=== PATIENT | male | born 1985 | race Caucasian/White ===

== ENCOUNTER 2023-06-01 18:54 | Emergency (ER) | payer BC ==
[~2023-06-01] VITALS: Ht 170.2 cm; Wt 74.8 kg
[2023-06-01 18:55] VITALS: BP 138/74; TEMP 98; O2SAT 100
[2023-06-01] MEDS ORDERED: LORAZEPAM INJ 2 MG/ML VIAL IV ONE (19:00)
[2023-06-01] MEDS ORDERED: IV NS 0.9% 1,000 ML BAG IV ONE (19:00)
[2023-06-01] MEDS ORDERED: FOLIC ACID 1 MG TABLET PO ONE (19:00)
[2023-06-01] MEDS ORDERED: THIAMINE HCL 100 MG TABLET PO ONE (19:00)
[2023-06-01] MEDS ORDERED: LAMO100T2 PO (19:11)
[2023-06-01] MEDS ORDERED: CLON1TAB12 PO (19:11)
[2023-06-01] MEDS ORDERED: GABA600T12 PO (19:11)
[2023-06-01] MEDS ORDERED: BACL20TA PO (19:11)
[2023-06-01] MEDS ORDERED: FOLIC ACID 1 MG TABLET ONE (19:37)
[2023-06-01] MEDS ORDERED: THIAMINE HCL 100 MG TABLET ONE (19:37)
[2023-06-01] MEDS ORDERED: LORAZEPAM INJ 2 MG/ML VIAL ONE (19:38)
[2023-06-01 20:06] LABS: BASOPHILS % (AUTO) 0.5 % (0.0-2.0); EOSINOPHILS # (AUTO) 0.2 K/uL (0.0-0.7); EOSINOPHILS % (AUTO) 1.9 % (0.0-6.0); HEMATOCRIT 39 % (39-51); HEMOGLOBIN 13.1 g/dL (13.5-17.5); LYMPHOCYTES # (AUTO) 1.6 K/uL (0.8-4.8); MEAN CORPUSCULAR HEMOGLOBIN 29 PG (26.0-33.0); MEAN CORPUSCULAR HGB CONC 34 g/dl (31.0-36.0); MEAN CORPUSCULAR VOLUME 87 fL (80-96); MONOCYTES # (AUTO) 0.6 K/uL (0.1-1.30); MONOCYTES % (AUTO) 6.8 % (2.0-12.0); NEUTROPHILS # (AUTO) 6.6 K/uL (1.8-8.9); NEUTROPHILS % (AUTO) 72.8 % (43.0-81.0); PLATELET COUNT (AUTO) 232 K/uL (150-450); RED BLOOD CELL COUNT(AUTO) 4.52 MIL/uL (4.5-6.0); RED CELL DISTRIBUTION WIDTH 14.1 % (11.5-15.0); WHITE BLOOD COUNT (AUTO) 9.1 K/uL (4.3-11.0)
[2023-06-01 20:28] LABS: AMPHETAMINE, URINE NEGATIVE (NEGATIVE); CANNABINOID, URINE NEGATIVE (NEGATIVE); COCCAINE, URINE NEGATIVE (NEGATIVE); OPIATE, URINE NEGATIVE (NEGATIVE); PHENCYCLIDINE SCREEN,URINE NEGATIVE (NEGATIVE)
[2023-06-01 20:29] LABS: ALANINE AMINOTRANSFERASE 42 U/L (12-78); ALBUMIN 3.3 g/dL (3.4-5.0); ALCOHOL, BLOOD < 3 mg/dL (0-10); ALKALINE PHOSPHATASE 98 U/L (46-116); ASPARTATE AMINOTRANSFERASE 40 U/L (15-37); BILIRUBIN,DIRECT 0.2 mg/dL (0.0-0.2); BILIRUBIN,TOTAL 0.8 mg/dL (0.2-1.0); CALCIUM, SERUM 8.6 mg/dL (8.5-10.1); CARBON DIOXIDE 29 mmol/L (21-32); CHLORIDE 103 mmol/L (98-107); GLUCOSE 109 mg/dL (74-106); POTASSIUM 3.5 mmol/L (3.5-5.1); SODIUM SERUM 140 mmol/L (136-145); TOTAL PROTEIN, SERUM 6.8 g/dL (6.4-8.2); UREA NITROGEN, BLOOD 7 mg/dL (7-18)
[2023-06-01 20:34] LABS: BARBITURATE, URINE POSITIVE (NEGATIVE); BENZODIAZEPINE, URINE POSITIVE (NEGATIVE)
== END 2023-06-01 20:55 | disposition left against medical advice (07) ==
LOC: ER 18:58
DX: R56.9 Unspecified convulsions (principal); F10.239 Alcohol dependence with withdrawal, unspecified; F10.229 Alcohol dependence with intoxication, unspecified; Y90.0 Blood alcohol level of less than 20 mg/100 ml
CPT/HCPCS: 99285; 96374; 96361; 93005; 71045; 85025; 80048; 80076; 36415; 82962; 80320; 80307; J2060; J7030; G0480

== ENCOUNTER 2023-06-03 14:51 | Emergency (ER) | payer BC ==
[~2023-06-03] VITALS: Ht 172.7 cm; Wt 69.9 kg
[~2023-06-03 14:51] MED LIST: BACL20TA PO; CLON1TAB12 PO; GABA600T12 PO; LAMO100T2 PO
[2023-06-03] MEDS ORDERED: LORAZEPAM INJ 2 MG/ML VIAL ONE ×2 (15:19→17:56)
[2023-06-03] MEDS ORDERED: LORAZEPAM INJ 2 MG/ML VIAL IV ONE ×2 (15:30→18:00)
[2023-06-03 16:15] LABS: BASOPHILS # (AUTO) 0.1 K/uL (0.0-0.2); BASOPHILS % (AUTO) 0.6 % (0.0-2.0); EOSINOPHILS # (AUTO) 0.2 K/uL (0.0-0.7); EOSINOPHILS % (AUTO) 2.5 % (0.0-6.0); HEMATOCRIT 39 % (39-51); HEMOGLOBIN 12.9 g/dL (13.5-17.5); LYMPHOCYTES # (AUTO) 1.5 K/uL (0.8-4.8); LYMPHOCYTES % (AUTO) 17.1 % (20.0-44.0); MEAN CORPUSCULAR HEMOGLOBIN 29 PG (26.0-33.0); MEAN CORPUSCULAR HGB CONC 33 g/dl (31.0-36.0); MEAN CORPUSCULAR VOLUME 88 fL (80-96); MONOCYTES # (AUTO) 0.6 K/uL (0.1-1.30); MONOCYTES % (AUTO) 7.1 % (2.0-12.0); NEUTROPHILS # (AUTO) 6.2 K/uL (1.8-8.9); NEUTROPHILS % (AUTO) 72.7 % (43.0-81.0); PLATELET COUNT (AUTO) 261 K/uL (150-450); RED BLOOD CELL COUNT(AUTO) 4.42 MIL/uL (4.5-6.0); RED CELL DISTRIBUTION WIDTH 14.3 % (11.5-15.0); WHITE BLOOD COUNT (AUTO) 8.5 K/uL (4.3-11.0)
[2023-06-03 16:25] LABS: CALCIUM, SERUM 8.8 mg/dL (8.5-10.1); CARBON DIOXIDE 23 mmol/L (21-32); CHLORIDE 105 mmol/L (98-107); CREATININE 1.1 mg/dL (0.6-1.3); GLUCOSE 117 mg/dL (74-106); POTASSIUM 3.5 mmol/L (3.5-5.1); SODIUM SERUM 138 mmol/L (136-145); UREA NITROGEN, BLOOD 16 mg/dL (7-18)
[2023-06-03 16:31] LABS: ALANINE AMINOTRANSFERASE 46 U/L (12-78); ALBUMIN 3.1 g/dL (3.4-5.0); ALCOHOL, BLOOD < 3 mg/dL (0-10); ALKALINE PHOSPHATASE 85 U/L (46-116); ASPARTATE AMINOTRANSFERASE 39 U/L (15-37); BILIRUBIN,DIRECT 0.1 mg/dL (0.0-0.2); BILIRUBIN,TOTAL 0.3 mg/dL (0.2-1.0); TOTAL PROTEIN, SERUM 6.7 g/dL (6.4-8.2)
[2023-06-03 16:34] LABS: ACETAMINOPHEN <10 ug/ml (10-30); SALICYLATE < 2.3 mg/dL (2.8-20.0)
[2023-06-03] MEDS ORDERED: CHLO25CA22 PO (17:52)
[2023-06-03 18:12] VITALS: BP 122/71; TEMP 98; O2SAT 100
== END 2023-06-03 18:13 | disposition home or self-care (01) ==
LOC: ER 15:06
DX: R56.9 Unspecified convulsions (principal); Z79.899 Other long term (current) drug therapy; Z60.2 Problems related to living alone
CPT/HCPCS: 99291; 96374; 96376; 70450; 85025; 80048; 80076; 36415; 80143; 80320; J2060 ×2; G0480

== ENCOUNTER 2023-06-07 00:09 | Inpatient (IN) | payer BC ==
[~2023-06-07] VITALS: Ht 180.3 cm; Wt 86.2 kg
[~2023-06-07 00:09] MED LIST changes: +CHLO25CA22 PO
[2023-06-07] MEDS ORDERED: LEVETIRACETAM (500MG) 500 MG/5 ML VIAL IV ONE (00:29)
[2023-06-07] MEDS ORDERED: LORAZEPAM INJ 2 MG/ML VIAL ONE (00:32)
[2023-06-07] MEDS: LEVETIRACETAM (500MG) 1,000 MG in IV NS 0.9% 90 ML IV SCH ×2 (00:41→00:43)
[2023-06-07 00:42] LABS: BASOPHILS % (AUTO) 0.5 % (0.0-2.0); EOSINOPHILS # (AUTO) 0.2 K/uL (0.0-0.7); EOSINOPHILS % (AUTO) 2.4 % (0.0-6.0); HEMATOCRIT 41 % (39-51); HEMOGLOBIN 13.4 g/dL (13.5-17.5); LYMPHOCYTES # (AUTO) 2.1 K/uL (0.8-4.8); LYMPHOCYTES % (AUTO) 25.6 % (20.0-44.0); MEAN CORPUSCULAR HEMOGLOBIN 29 PG (26.0-33.0); MEAN CORPUSCULAR HGB CONC 33 g/dl (31.0-36.0); MEAN CORPUSCULAR VOLUME 89 fL (80-96); MONOCYTES # (AUTO) 1.3 K/uL (0.1-1.30); MONOCYTES % (AUTO) 16.3 % (2.0-12.0); NEUTROPHILS # (AUTO) 4.4 K/uL (1.8-8.9); NEUTROPHILS % (AUTO) 55.2 % (43.0-81.0); PLATELET COUNT (AUTO) 312 K/uL (150-450); RED BLOOD CELL COUNT(AUTO) 4.62 MIL/uL (4.5-6.0); RED CELL DISTRIBUTION WIDTH 15.2 % (11.5-15.0)
[2023-06-07 00:51] LABS: CALCIUM, SERUM 9.2 mg/dL (8.5-10.1); CARBON DIOXIDE 21 mmol/L (21-32); CHLORIDE 106 mmol/L (98-107); GLUCOSE 109 mg/dL (74-106); POTASSIUM 3.9 mmol/L (3.5-5.1); SODIUM SERUM 138 mmol/L (136-145); UREA NITROGEN, BLOOD 15 mg/dL (7-18)
[2023-06-07 00:54] LABS: PHENOBARBITAL 6 ug/ml (15-39)
[2023-06-07 00:56] LABS: ALANINE AMINOTRANSFERASE 71 U/L (12-78); ALBUMIN 3.4 g/dL (3.4-5.0); ALKALINE PHOSPHATASE 78 U/L (46-116); ASPARTATE AMINOTRANSFERASE 30 U/L (15-37); BILIRUBIN,DIRECT 0.1 mg/dL (0.0-0.2); BILIRUBIN,TOTAL 0.2 mg/dL (0.2-1.0); TOTAL PROTEIN, SERUM 7.2 g/dL (6.4-8.2)
[2023-06-07 00:57] LABS: ALCOHOL, BLOOD < 3 mg/dL (0-10)
[2023-06-07] MEDS ORDERED: LORAZEPAM INJ 2 MG/ML VIAL IV ONE (01:00)
[2023-06-07] MEDS ORDERED: KETOROLAC TROMETHAMINE INJ 30 MG/ML VIAL IV ONE (02:00)
[2023-06-07] MEDS ORDERED: KETOROLAC TROMETHAMINE 15 MG/ML VIAL ONE (02:20)
[2023-06-07] MEDS ORDERED: LORAZEPAM INJ 2 MG/ML VIAL IV PRN (05:00)
[2023-06-07] MEDS ORDERED: ONDANSETRON HCL/PF 4 MG/2 ML VIAL IVP PRN (05:00)
[2023-06-07] MEDS ORDERED: MAGNESIUM HYDROXIDE 30 ML UDC PO PRN (05:00)
[2023-06-07] MEDS ORDERED: ACETAMINOPHEN 325 MG TABLET PO PRN (05:00)
[2023-06-07] MEDS ORDERED: FOLI0.8T3 PO (07:56)
[2023-06-07] MEDS ORDERED: THIA100T70 PO (07:56)
[2023-06-07] MEDS ORDERED: CHLO25CA22 PO (07:56)
[2023-06-07] MEDS ORDERED: PHEN64.8 PO (07:56)
[2023-06-07] MEDS ORDERED: GABA600T12 PO (07:56)
[2023-06-07] MEDS ORDERED: DIAZ10TA PO (07:56)
[2023-06-07] MEDS ORDERED: HYDR50TA61 PO (07:56)
[2023-06-07] MEDS ORDERED: PHEN32.46 PO (07:56)
[2023-06-07] MEDS ORDERED: LEVETIRACETAM (250 MG) 250 MG TABLET PO SCH (09:00)
[2023-06-07] MEDS ORDERED: LamoTRIgine 100 MG TABLET PO SCH (09:00)
[2023-06-07] MEDS ORDERED: GABAPENTIN 300 MG CAPSULE PO SCH (09:00)
[2023-06-07 09:05] VITALS: O2SAT 99
[2023-06-07] MEDS ORDERED: GABAPENTIN 300 MG CAPSULE ONE ×2 (09:58→13:04)
[2023-06-07] MEDS ORDERED: LEVETIRACETAM (250 MG) 250 MG TABLET PO ONE (09:58)
[2023-06-07] MEDS ORDERED: ONDANSETRON HCL/PF 4 MG/2 ML VIAL ONE (10:44)
[2023-06-07] MEDS ORDERED: CHLORDIAZEPOXIDE HCL 25 MG CAPSULE PO PRN (11:00)
[2023-06-07 12:21] LABS: THYROID STIMULATING HORMONE 2.671 uIU/mL (0.358-3.74)
[2023-06-07 13:03] LABS: MAGNESIUM 2.5 mg/dL (1.8-2.4)
[2023-06-07] MEDS: GABAPENTIN 400 MG CAPSULE PO SCH ×2 (13:18→17:35)
[2023-06-07 16:00] VITALS: BP 151/94; TEMP 98.2; O2SAT 98
[2023-06-07] MEDS ORDERED: DIAZEPAM 5 MG TABLET PO SCH (18:00)
[2023-06-07] MEDS ORDERED: hydrOXYzine PAMOATE 50 MG CAPSULE PO SCH (18:00)
[2023-06-07] MEDS ORDERED: hydrOXYzine PAMOATE 25 MG CAPSULE PO SCH (18:00)
[2023-06-07] MEDS ORDERED: DIAZEPAM 10 MG TABLET PO SCH (18:00)
[2023-06-07 20:00] VITALS: BP 108/85; TEMP 97.9; O2SAT 98
[2023-06-08] MEDS ORDERED: FOLIC ACID 1 MG TABLET PO SCH (09:00)
[2023-06-08] MEDS ORDERED: PHENOBARBITAL 60 MG/15 ML UDC PO SCH ×2 (09:00)
[2023-06-08] MEDS ORDERED: THIAMINE HCL 100 MG TABLET PO SCH (09:00)
[2023-06-08 14:07] LABS: FOLIC ACID 11.7 ng/mL (>3.0)
[2023-06-10 07:07] LABS: VITAMIN B1 THIAMINE,WB 142.6 nmol/L (66.5-200.0)
== END 2023-06-07 21:25 | disposition left against medical advice (07) | DRG 101 ==
LOC: ER 00:10 → TRANSITION 09:16 → TELE 15:06
PROVIDERS: ADMIT Nurse Practitioner Acute Care; ATTEND Nurse Practitioner Acute Care
DX: G40.409 Other generalized epilepsy and epileptic syndromes, not intractable, without status epilepticus (principal); F41.9 Anxiety disorder, unspecified; F10.10 Alcohol abuse, uncomplicated; Y90.0 Blood alcohol level of less than 20 mg/100 ml
CPT/HCPCS: 36415; 70450-TC; 80048-TC; 80076-TC; 80175; 80184; 82607-TC; 83735-TC; 84425; 84439-TC; 84443-TC; 85025-TC; 87081-TC; G0378; G0480; J1885; J1953; J2060; J2405; J7030; Q0177